=== PATIENT | female | born 1995 | race Caucasian/White ===

== ENCOUNTER 2022-09-30 15:12 | Outpatient (CLI) | payer MEDICAID, SELFPAY | END 2022-09-30 15:13 | disposition home or self-care (01) | LOC: NFLDREF 15:12 | PROVIDERS: PCP Family Medicine; Visit Provider Advanced Practice Midwife | DX: Z34.92 Encounter for supervision of normal pregnancy, unspecified, second trimester (principal); Z3A.16 16 weeks gestation of pregnancy | CPT/HCPCS: 80306 ==

== ENCOUNTER 2022-10-28 09:34 | Outpatient (CLI) | payer MEDICAID, SELFPAY ==
--- NOTE | 2022-10-28 09:45 | CRLHL7_ITS ---
For Patients: As a result of the Century Cures Act, medical imaging exams and procedure reports are released immediately into your electronic medical record. You may view this report before your referring provider. If you have questions, please contact your health care provider. INDICATION: Evaluate anatomy. COMPARISON: none TECHNIQUE: Real time [place] scale imaging of the fetus was performed as well as color Doppler analysis of the umbilical vessels. FINDINGS: Sonographic imaging demonstrates a single living intrauterine gestation. Fetus demonstrates a regular cardiac rate of 150 beats per minute. Fetus has a variable position. The placenta lies anteriorly without evidence of placenta previa. The edge of the placenta is located 7.3 cm from the internal cervical os. Amniotic fluid volume appears normal. Single deepest vertical pocket: 4.8 cm. The cervix is closed and measures 4.5 cm in length. The composite ultrasound gestational age is calculated at 21 weeks 0 days with an estimated sonographic due date of 03/10/2023. The estimated weight is 406 grams which lies at the 90th %. The following biometric measurements were obtained: Biparietal diameter: 4.9 cm/21 weeks 0 days 77th% Head circumference: 18.4 cm/20 weeks 5 days 63rd% Abdominal circumference: 16.5 cm/21 weeks 4 days 83rd% Femur length: 3.5 cm/20 weeks 6 days 63rd% The HC/AC ratio measures: 1.11 range (1.06-1.25) On anatomic survey, there is a normal appearance of the cerebral ventricles, cavum septi pellucidi, cisterna magna and cerebellum. The nose, lips, and facial profile appear normal. The cervical, thoracic and lumbar spine are well visualized and appear normal. There is a normal four-chamber heart view and the left and right ventricular outflow tracts appear normal. The diaphragm and stomach appear normal. The kidneys and bladder also appear normal. There is a normal three-vessel cord there is a marginal cord insertion site located 1.6 cm from the superior placental as. The four extremities appear normal. IMPRESSION: Concordance of clinical and sonographic dating. Normal anatomic survey. Marginal placental cord insertion. Dictated by Johnie Ludwig MD @ 10/29/2022 9:47:21 AM (Electronically Signed)
== END 2022-10-28 09:35 | disposition home or self-care (01) ==
LOC: US 09:35
PROVIDERS: PCP Family Medicine; Visit Provider Advanced Practice Midwife
DX: Z34.92 Encounter for supervision of normal pregnancy, unspecified, second trimester (principal); Z3A.20 20 weeks gestation of pregnancy
CPT/HCPCS: 76805

== ENCOUNTER 2022-12-21 14:00 | Outpatient (REF) | payer MEDICAID, SELFPAY | END 2022-12-21 14:01 | disposition home or self-care (01) | LOC: NFLDREF 14:00 | PROVIDERS: PCP Family Medicine; Referring Provider Family Medicine; Visit Provider Advanced Practice Midwife | DX: Z34.90 Encounter for supervision of normal pregnancy, unspecified, unspecified trimester (principal) | CPT/HCPCS: 86592 ==

== ENCOUNTER 2023-01-04 13:26 | Outpatient (CLI) | payer MEDICAID, SELFPAY | END 2023-01-04 13:27 | disposition home or self-care (01) | LOC: NFLDREF 01-07 17:05 | PROVIDERS: PCP Family Medicine; Referring Provider Family Medicine; Visit Provider Advanced Practice Midwife | DX: Z34.93 Encounter for supervision of normal pregnancy, unspecified, third trimester (principal); F12.20 Cannabis dependence, uncomplicated; Z3A.30 30 weeks gestation of pregnancy | CPT/HCPCS: 80306 ==

== ENCOUNTER 2023-01-18 10:56 | Outpatient (CLI) | payer MEDICAID, SELFPAY ==
--- NOTE | 2023-01-18 11:00 | CRLHL7_ITS ---
For Patients: As a result of the Century Cures Act, medical imaging exams and procedure reports are released immediately into your electronic medical record. You may view this report before your referring provider. If you have questions, please contact your health care provider. INDICATION: f/u marginal cord insert COMPARISON: 10/28/2022 TECHNIQUE: Real time [place] scale imaging of the fetus was performed as well. FINDINGS: Sonographic imaging demonstrates a single living intrauterine gestation. Fetus demonstrates a regular cardiac rate of 128 beats per minute. Fetus has a vertex position. The placenta lies anteriorly. Amniotic fluid volume appears normal and there is a single deepest vertical pocket: 4.2 cm. The cord insertion into the placenta is located 3.6 cm from the placental edge. IMPRESSION: Placental cord insertion is now located 3.6 cm from the placental edge. Dictated by Johnie Ludwig MD @ 01/19/2023 9:48:54 AM (Electronically Signed)
== END 2023-01-18 10:57 | disposition home or self-care (01) ==
LOC: US 10:56
PROVIDERS: PCP Family Medicine; Visit Provider Advanced Practice Midwife
DX: Z34.93 Encounter for supervision of normal pregnancy, unspecified, third trimester (principal); O34.219 Maternal care for unspecified type scar from previous cesarean delivery; Z3A.32 32 weeks gestation of pregnancy
CPT/HCPCS: 76816

== ENCOUNTER 2023-01-19 16:31 | Outpatient (CLI) | payer MEDICAID, SELFPAY ==
--- NOTE | 2023-01-19 17:00 | CRLHL7_ITS ---
For Patients: As a result of the Century Cures Act, medical imaging exams and procedure reports are released immediately into your electronic medical record. You may view this report before your referring provider. If you have questions, please contact your health care provider. INDICATION: Third trimester scan, evaluate growth. COMPARISON: 01/18/2023 TECHNIQUE: Real time [place] scale imaging of the fetus was performed. FINDINGS: Sonographic imaging demonstrates a single living intrauterine gestation. Fetus demonstrates a regular cardiac rate of 137 beats per minute. Fetus has a vertex position. The placenta lies left sided. Amniotic fluid volume appears normal and there is a single deepest vertical pocket: 4.9 cm. The estimated weight is 1902gm which lies at the 38th %. On the prior OB ultrasound exam dated 10/28/2022 the estimated weight was at the 90th%. BPD 78th percentile. HC 70th percentile. AC 36th percentile. FL 25th percentile. The HC/AC ratio measures 1.11 range (0.96-1.11). IMPRESSION: Sonographic gestational age 32 weeks 6 days and sonographic due date 03/10/2023. Good correlation with dates. Normal interval growth. Estimated weight 38th percentile. Abdominal circumference 36th percentile. Dictated by Johnie Ludwig MD @ 01/20/2023 8:17:43 AM (Electronically Signed)
== END 2023-01-19 16:32 | disposition home or self-care (01) ==
LOC: US 16:32
PROVIDERS: PCP Family Medicine; Visit Provider Advanced Practice Midwife
DX: Z34.93 Encounter for supervision of normal pregnancy, unspecified, third trimester (principal); Z3A.32 32 weeks gestation of pregnancy
CPT/HCPCS: 76816

== ENCOUNTER 2023-02-01 13:37 | Outpatient (CLI) | payer MEDICAID, SELFPAY | END 2023-02-01 13:38 | disposition home or self-care (01) | LOC: NFLDREF 13:38 | PROVIDERS: PCP Family Medicine; Visit Provider Advanced Practice Midwife | DX: Z34.93 Encounter for supervision of normal pregnancy, unspecified, third trimester (principal) | CPT/HCPCS: 82728; 83021 ==

== ENCOUNTER 2023-02-15 15:34 | Outpatient (CLI) | payer MEDICAID, SELFPAY ==
[2023-02-18 09:02] LABS: Strep B DNA Probe Negative (Negative); Strep B Susceptibility Needed? No
== END 2023-02-15 15:35 | disposition home or self-care (01) ==
LOC: NFLDREF 15:34
PROVIDERS: PCP Family Medicine; Visit Provider Advanced Practice Midwife
DX: Z34.93 Encounter for supervision of normal pregnancy, unspecified, third trimester (principal); Z3A.36 36 weeks gestation of pregnancy
CPT/HCPCS: 76816; 76819; 87081; 87653

== ENCOUNTER 2023-02-22 13:40 | Outpatient (CLI) | payer MEDICAID, SELFPAY ==
--- NOTE | 2023-03-09 00:53 | PC.NURSE ---
Center telephone call greater than 37 weeks Date of call: [03/09/23] Time of call: [0049] Name of person calling: [Dulce Cervantes] Best phone # to reach you at: [[phone]] patient: G: [4] P: [2] EDC: [03/15/23] Gestational age: [39.1] weeks Provider: [Roz Stein] Reason for calling (patient's words): [I think my water just broke. It's either that or I peed in my bed. There is little white flecks in it.] Instructed patient to come to the center for further evaluation. If patient is calling with the following complaints, instructed to come to Center for evaluation: Feels like water broke: [yes] Regular contractions that are 5 min apart: [no] Bleeding that is bright red and similar to a menstrual period: [no] Decreased movement: [no] Temp >100.4: [no] Patient has a sense that something doesn't feel right: [no] Is patient having contractions: [no] Reviewed Signs of Labor: Uterine tightening or cramping that occurs at regular intervals. These typically occur at shorter and shorter intervals and may increase in intensity with time. Unlike [place] contractions, changes in activity should not make these symptoms go away. With true labor, the time between contractions will gradually shorten and the intensity gradually increases. Typical recommendation is coming to the hospital when contractions occur every 5 minutes or less and last for 60 seconds or more for 1 hour. If patient chooses to stay home, patient given comfort instructions and informed if symptoms stay the same or are worse after 1 hour come to Center. Comfort measures: Lie on left side, reset, drink bottle or large cup of water, monitor contractions for 1 hour. Patient verbalized understanding?: [yes] Is patient coming for evaluation?: [yes] Telephone conversation guided by approved policy and flow chart, Telephone Calls From Patient's, approved at [facility] perinatology Committee November 2022.
== END 2023-02-22 13:41 | disposition home or self-care (01) ==
LOC: NFLDREF 13:40
PROVIDERS: PCP Family Medicine; Visit Provider Advanced Practice Midwife
DX: O99.323 Drug use complicating pregnancy, third trimester (principal); F12.20 Cannabis dependence, uncomplicated; Z3A.37 37 weeks gestation of pregnancy
CPT/HCPCS: 80306

== ENCOUNTER 2023-03-09 03:33 | Inpatient (IN) | payer MEDICAID, SELFPAY ==
[2023-03-09] VITALS (31 sets, daily range): BP systolic 114–149; BP diastolic 64–102; PULSE 32–81; RESP 16–18; TEMP 36.3–36.8; O2SAT 95–100; BMI 37.5
[2023-03-09 03:16] LABS: Amnisure Rom* POSITIVE
[2023-03-09 03:20] LABS: Amphetamine Screen Urine Negative (Negative); Barbiturate Screen Urine Negative (Negative); Benzodiazepines Screen Urine Negative (Negative); Cannabinoid Screen Urine POSITIVE (Negative); Cocaine Screen Urine Negative (Negative); Methadone Screen Urine Negative (Negative); Methamphetamines Screen Urine Negative (Negative); Opiate Screen Urine Negative (Negative); Oxycodone Screen Urine Negative (Negative); Phencyclidine Screen Urine Negative (Negative); Tricyclic Antidepressant Urine Negative (Negative)
--- NOTE | 2023-03-09 04:07 | W.PM.LDBA ---
Subjective History of Present Illness Date Seen: 03/09/23 Narrative: Patient is being admitted to Labor and Delivery for SROM with clear fluid. She is a 27 year old at 39.1 weeks gestation. Her full history and physical was dictated by Fox Jean-Baptiste CNM on 02/22/23. Please see this for details. She ruptured at 0030. She has not felt contractions since rupture and denies feeling the contractions that were tracing on the toco at time of admit. we discussed expectant management vs Pitocin titration. Risks and benefits of each were discussed. She would like to proceed with Pitocin. She is up ambulating in her room. Specific Issues/Plans Transfer at 16 2/7 from [facility] H&P done by CHAY Morejon CNM on 02/22/2023 1. History of delivery Previous c/s 12/27/2021, records received Indication: bradycardia w/ elective IOL TOLAC consent signed. If not delivered spontaneously by 40 weeks will plan on C/S. Consult OB next visit. 36 wk growth us recommended: 70%, BPP 10/19 2. Closely Spaced Pregnancies Her youngest is 9 m at transfer visit Discussed with the whole OB team and they are all in agreement that they are comfortable with a TOLAC despite closely spaced . 3. History of multiple illicit drugs Reported she has used everything UDS ordered at transfer visit: + for THC 4. Current THC Use, plans to try to stop for UDS 09/30: + THC 10/29, admits to still using, but has decreased UDS 28 weeks: 01/04, admits to still using +THC in UDS UDS 37 weeks: positive THC 5. Marginal cord insertion. RESOLVED Growth u/s Q 4 weeks starting at 28-32 weeks: 38% EFW at 32 weeks 01/18: Placental cord insertion is now located 3.6 cm from the placental edge. Consider weekly BPP or NST starting 36 weeks Flu: declines Tdap: 01/04/2023 RSV: 01/18/2023 PHQ-9/SARAH-7: 01/18/2023 COVID: Declines OB Labs 08/12/2022: Blood type: B+, antibody screen negative. Hgb: 13.1 Platelets: 272 Rubella: Immune RPR: non-reactive HBsAg: negative Hep C: non-reactive HIV: negative GC/Chlamydia: not collected Urine: no growth Genetic screening: declined 1st US: 08/13/2022: Impression: Unremarkable, KANG by 1st trimester US 03/15/2023 pap due OB - Problem Based A/P Additional Plan (1) PROM (premature rupture of membranes): Status: Acute (2) Uterine scar from previous delivery affecting : Status: Acute (3) Short interval between pregnancies affecting in third trimester, antepartum: Status: Acute (4) Marijuana use during : Status: Acute Plan ASSESSMENT:? at 39.1 weeks gestation? GBS negative? complicated by previous scar and short interpregnancy interval.? Spontaneous prelabor rupture of membranes ? ?? PLAN:? 1. Reviewed risks and benefits of augmentation with Pitocin vs expectant management. Pt prefers augmentation with Pitocin titration.? 2. Candidate for analgesia of choice. Planning unmedicated .? 3. Anticipate NVD? 4. Place IV per policy for TOLAC 5. Continuous monitoring for TOLAC. 6. UDS for history of THC use. Delivery/Labor/Induction Plan Induction method: per pitocin protocol OB Result Labs Blood Type: B (+) positive Rubella: immune RPR/VDLR: nonreactive GBS Status: negative HBsAG: negative OB Exam Physical Exam Vital signs: Pulse BP 81 114/72 03/09/23 02:23 03/09/23 02:23 Narrative: Psychiatric:? Alert and oriented x3? HEENT:? Normocephalic, atraumatic? Neck:? Supple without adenopathy or thyromegaly? Lungs:? Clear to auscultation bilaterally? Heart:? Regular rate and rhythm, no murmur, rub or gallop? Abdomen:? Soft, nontender, and gravid? Extremities:? No edema or erythema? Detailed Labor and Delivery Exam Patient Gravid: Yes Dilation (cm): 3 (per RN exam) Effacement (%): 30 Contraction Frequency: 6-8 Tachysystole: No Contraction intensity: Mild Fetus (Single) Station: -3 Amniotic Membrane Status: SROM Amniotic Membrane Fluid Description: Clear Heart Rate Baseline: 130 Monitor Accelerations: Present Monitor Decelerations: None Halfway Variability: Moderate (6-25)
[2023-03-09 04:30] LABS: Basophils Percent Auto 0.3 % (0.0-3.0); Hematocrit 33.7 % (33.0-51.0); Hemoglobin* 11.1 gm/dL (12.0-16.0); Immature Granulocytes Pct Auto 0.4 %; Lymphocytes Percent Auto 17.2 % (20-44); Mean Corpuscular HGB Conc 33 gm/dL (32-36); Mean Corpuscular Hemoglobin 29 pg (26-34); Mean Corpuscular Volume 89 fL (80-100); Monocytes Percent Auto 8.1 % (0.0-11.0); Platelet Count* 290 K/uL (140-440); RDW Coefficient of Variation % 13.4 % (11.5-15.5); Red Blood Count 3.81 m/uL (4.00-5.20); White Blood Count* 15.17 K/uL (4.50-11.00)
[2023-03-09 04:39] LABS: Slide Review Reflex No
[2023-03-09] MEDS: LACTATED RINGERS 1000 ML 1,000 ML 125 ML IV ×2 (04:45→13:36)
[2023-03-09] MEDS: OXYTOCIN 30 unit/500 ML in NS 30 UNIT/500 ML BAG IVPB (05:28)
--- NOTE | 2023-03-09 07:52 | PM.OBPNL ---
Subjective Time Seen by Provider: 07:45 Date Seen: 03/09/23 Narrative: Ms. Cervantes is a 27yo undergoing IOL in the setting of PROM. She is a CNM patient, s/p TOLAC consult with Dr. Rodriguez on 11/24/22. On review of EMR this morning, her signed TOLAC consent could not be identified. SAAD ProM requested repeat consenting. I visited with Alejandra, who affirmed her strong desire of TOLAC. We discussed her likelihood of success being 79.9% by MFMU calculator. We discussed the risks of trial of labor after section (TOLAC). There is a 0.5-0.9% chance of uterine rupture with one prior low transverse section and 0.9-1.3% if there are 2 prior low transverse sections. Uterine rupture risk can be up to 3% with induction of labor with used of prostaglandins. Due to this risk, we will not be using prostaglandins for induction of labor. She is ongoing induction via pitocin at this time. Of note, I explained there is an increased risk of uterine rupture with close interval pregnancies, particularly when the delivery to conception interval is less than 6 months. Alejandra's last baby was born on 12/27/21, and with her KANG of 03/15/23 her probable date of conception was 06/21/22. As such, I did explicitly explain that she is at an increased risk of uterine rupture. I discussed that in the event of uterine rupture, there could be catastrophic outcome including maternal hysterectomy, transfusion, infection, intensive care unit admission, maternal , , and mental handicap. There is up to a 25% risk of or neurological damage if rupture does occur. She is in agreement with blood transfusion if medically necessary. I also explained the resources and staffing available at our institution. We also discussed that an elective repeat section has risks as well. These include bleeding, infection, damage to the uterus (possibly requiring a hysterectomy), and damage to bladder and bowel. Additionally, babies born by section have a slightly increased risk of needing oxygen temporarily compared to babies born vaginally. Overall, the probability of successful based on her personal history is 79.9% based on MFMU calculator. The factors that increase the probability of success include a prior vaginal and spontaneous labor. Factors that decrease the probability of success are history of section for labor dystocia, increased maternal age, gestational age greater than 40 weeks, maternal obesity, preeclampsia, and increased size. Although there is no universally agreed upon discriminatory point, evidence suggests that women with at least 60-70% likelihood of achieving during attempted TOLAC experiences same or less maternal morbidity as women who undergo elective repeat delivery. All questions answered. After this discussion, she acknowledged the risks and benefits and strongly desires to continue TOLAC. TOLAC consent form completed by Alejandra and myself. Objective Vital Signs: Last Vital Signs Temp 98.0 F 03/09/23 06:45 Pulse 63 03/09/23 07:13 Resp 16 03/09/23 06:45 BP 133/64 03/09/23 07:13 Contractions Contraction intensity: Mild Assessment Station: -3 Heart Rate Baseline: 130 Monitor Accelerations: Present Monitor Decelerations: None
[2023-03-09] MEDS: LACTATED RINGERS 1000 ML 1,000 ML 999 ML IV (11:06)
--- NOTE | 2023-03-09 11:24 | PM.OBPNL ---
Subjective Time Seen by Provider: 11:25 Date Seen: 03/09/23 Narrative: Called to L & D for decels in FHTs. Possible decels previously noted, but unable to determine if they were r/t Novii monitor or actual decels. Monitors switched to EFM/[place], and decels noted with ctx. Did try a few position changes prior to calling. Pt also feeling increased pressure. Assisted from tub for further evaluation. SVE at that time noted to be 5-6. Continued with external monitoring, but both contractions and FHR difficult to trace. Audible decels noted. Decision made to switch to internal monitors, placed w/o difficulty. Pitocin initially decreased, but discontinued once internals were placed. Dr. Baer aware of pt status, including SVE, internal monitors and early decelerations to 80-90s with contractions. Good return to baseline between contractions. Pt did have one elevated BP, 141/79, but taken after pt had been up and was олег. Awaiting repeat, will get preeclampsia labs if it remains elevated. Alejandra is coping well with labor pain/contractions. Her partner is with her for support. She would like to continue with non pharmacologic methods for comfort and pain management.?She is doing some small pushing w/ ctx, encouraged to breathe through as able. ? Objective Exam: VSS, afebrile General Appearance:? Calm, cooperative. No acute distress. ? Psychiatric Exam: Alert and oriented, appropriate affect Abdomen: Gravid Ctx: ?Q 2-3 min apart. ? Moderate - Strong FHTs: Baseline: 115. Variability: moderate. Accels: none. Decels: early decels w/ ctx. SVE: 6/90/0 Membranes: SROM X 11 hours ? Vital Signs: Last Vital Signs Temp 97.9 F 03/09/23 10:17 Pulse 56 L 03/09/23 10:17 Resp 16 03/09/23 10:17 BP 141/79 H 03/09/23 10:17 Pulse Ox 99 03/09/23 11:20 Assessment Heart Rate Baseline: 130 Plan Plan: Assessment:?? at 39.1 gestation?? GBS neg Patient is coping well with challenges of labor.?? Labor type: Ay[place]ed, active labor? complicated by: -Hx of -1 prior NVD -closely spaced , approved for TOLAC -Marijuana use in . Labor complicated by: -TOLAC -Early decels w/ ctx ? Plan:?? Continue to monitor contractions and decelerations. Pitocin off at this time, will reevaluate if contractions space out. Continue to monitor for labor progress. Continue with routine intrapartum cares as ordered.?? Patient encouraged to move and change positions to promote physiologic labor and and to help improve heart rate decelerations as needed.?? Nonpharmacologic comfort measures per patient preference. Candidate for analgesia of choice if desired. Anticipate progress to NVD.
[2023-03-09] MEDS: CEFAZOLIN 2 GM INJ IVP (12:18)
[2023-03-09] MEDS: AZITHROMYCIN 500 MG in 0.9 % SODIUM CHLORIDE 250 ml 250 ML 255 MG IVPB (12:26)
--- NOTE | 2023-03-09 12:49 | PM.OBPNL ---
Subjective Time Seen by Provider: 12:20 Date Seen: 03/09/23 Narrative: CNM at bedside to assess decelerations, labor progress and see how Alejandra is coping. Requesting nitrous oxide. Changed positions: hands and knees, both sides, standing, sitting. Continues to breath through ctx. Decelerations worse in certain positions. SVE done as she was feeling more pressure, 7/90/0. CNM continued at bedside. Decelerations noted to be taking longer to recover from, clifford lower, and not returning to baseline 115. Dr. Goodwin called to bedside for further assessment. Decision made to proceed with joce castillo. Pt and partner aware of plan. Objective Exam: VSS, afebrile General Appearance:? Calm, cooperative. No acute distress. ? Psychiatric Exam: Alert and oriented, appropriate affect Abdomen: Gravid Ctx: ?Q 2-3 min apart. ? Moderate - Strong FHTs: Baseline: 115. Variability: moderate. Accels: none. Decels: variable/late. SVE: 7/90/0 Membranes: SROM X 12 hours ? Vital Signs: Last Vital Signs Temp 97.7 F 03/09/23 11:39 Pulse 60 03/09/23 11:40 Resp 16 03/09/23 11:39 BP 146/65 H 03/09/23 11:40 Pulse Ox 99 03/09/23 11:20 Plan Plan: Assessment:?? at 39.1 gestation?? GBS neg Patient is coping well with challenges of labor.?? Labor type: Augmented, active labor? complicated by: -Hx of -1 prior NVD -closely spaced , approved for TOLAC -Marijuana use in . Labor complicated by: -TOLAC -Worsening decelerations and bradycardia, remote from delivery Plan: Dr. Goodwin at bedside to assess situation. Decision made to proceed with a code white emergency . Pt and partner agree with plan.
--- NOTE | 2023-03-09 12:54 | CRLHL7_ITS ---
For Patients: As a result of the Cures Act, medical imaging exams and procedure reports are released immediately into your electronic medical record. You may view this report before your referring provider. If you have questions, please contact your health care provider. Indication: Post code Technique: Abdomen 1 view. Comparison: None. Findings: No dilated bowel loops. No retained foreign body. Impression: No retained foreign body. Dictated by Johnie Ludwig MD @ 03/10/2023 9:06:06 AM (Electronically Signed)
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
--- NOTE | 2023-03-09 13:34 | P.ANES_ITS ---
Anesthesia Charges Start Date/Time Anesthesia Start Date: 03/09/23 Anesthesia Start Time: 12:15 Stop Date/Time Anesthesia Stop Date: 03/09/23 Anesthesia Stop Time: 13:29 Summary Emergency: INFORMATICS ANALYST
--- NOTE | 2023-03-09 13:47 | P.OBPRC_ITS ---
OB Delivery Proc Additional Procedures Tubal Ligation at the time of : No Procedure Time Seen by Provider: 12:20 Date of procedure: 03/09/23 Pre-op diagnosis: Non-reassuring heart tones Trial of Labor After Post-op diagnosis: same Procedure Done: Global Will [facility] bill your pro fee for this procedure?: Yes Blood Loss Measurement Type: QBL (149) Bakri Used: No IV fluids (mL): 1,000 Urine Output (mL): 200 Surgeon: Cornelius Baer MD Substance Abuse Rn: Mandy Jimenez MD Anesthesia Type: General Findings: Moderate scarring of the rectus fascia and rectus abdominal muscles in the setting of prior delivery. Bladder flap advanced on the lower uterine segment. Unremarkable uterus, fallopian tubes and ovaries. Thin adhesions noted between the bilateral fallopian tubes and ovaries. Procedure Name: Repeat delivery Procedure Description: PROCEDURE IN DETAIL: Patient was taken to the operating room with IV running in the setting of a code white for prolonged heart rate deceleration. She arrived to the operating room at 12:16 pm where heart rate was initially noted to be 90-100bpm with moderate variability. She was transferred to the OR table and Solano catheter was inserted. heart was noted to decelerate to 70 beats per minute at 1218, decision was made to proceed with induction of general anesthesia in the setting of emergency delivery. She received cefazolin and azithromycin in preoperative prophylaxis. She was prepped with a Betadine splash and draped in the usual sterile fashion. Upon induction of anesthesia insertion of endotracheal tube, we immediately proceeded to incision. A low-transverse skin incision was made with a scalpel and carried through to the underlying layer of fascia with the scalpel. The subcutaneous fat was dissected off the underlying fascia with blunt dissection. The fascia was nicked in the midline with a scalpel, and this incision was extended laterally with scissors. There was noted to be thickened rectus fascia and adhesions underlying rectus muscle in the setting of prior surgery. Prakash clamps were utilized to elevate the fascia and drop down the rectus abdominal muscle superiorly and inferiorly. The rectus muscles were in the midline. Peritoneum was identified and entered bluntly. Peritoneal opening was extended laterally with blunt dissection. Adhesion was noted between the bladder and lower uterine segment, where a bladder flap was quickly developed with Citizen Of [place] and Audie scissors. Gentle blunt dissection dropped the bladder reflection to well below the planned hysterotomy. Bladder blade inserted. Low- transverse uterine incision was made with a scalpel. Incision was widened bluntly. The infant's head was grasped through the hysterotomy and delivered with the help of fundal pressure. The remainder of the body delivered without incident. No nuchal cord was present. Immediate respiratory effort, crying and tone were noted in the . Cord was clamped and cut after 30 seconds. was handed off to attending nurses. A segment was obtained for cord gas analysis in the setting of non- reassuring status prior to delivery, and handed off to obtain gas specimen. The placenta was delivered with gentle traction on the cord. No apparent placental abruption was identified. The uterus was cleaned of all clots and debris with the dry lap pad. Hysterotomy was inspected, with no extensions noted. The hysterotomy was reapproximated with 0 Vicryl in a running, locked fashion. Uterine atony was noted as we proceeded with the primary closure, where bimanual massage, TXA and Hemabate were utilized. Methergine was avoided given her evolving in hypertensive disease. Second layer of the same suture was used in imbricating fashion to obtain hemostasis. Excellent tone was noted at completion of hysterotomy closure. The uterus was examined fully, with no evidence of uterine rupture. The adnexa were examined and noted to be normal in appearance, aside from thin adhesive disease between the bilateral tubes and ovaries. The cul-de-sac and gutters were cleansed with dampened laparotomy sponge, removing any further clots and debris. The hysterotomy was reexamined and found to be hemostatic. The bladder flap was inspected and noted to be hemostatic. The rectus fascia was elevated with 2 Prakash clamps, rectus muscles were examined and found to be hemostatic. The fascia was reapproximated with 0 Vicryl in a running fashion. Subcutaneous fat was irrigated and Bovie used on oozing vessels. The subcutaneous fat was reapproximated with 2-0 Vicryl in a running fashion. The skin was closed with a subcuticular stitch of 3-0 Monocryl. Surgical glue was applied above this. Patient tolerated procedure well was taken to recovery area in stable condition. Surgical debriefing was completed as described below. Specimens including cord gas and placenta sent for evaluation. I completed a debrief Alejandra's , Clyde, to explain the indication for emergency delivery and my intraoperative findings. All questions answered. Plan to return to the bedside after patient is awake, to debrief with Alejandra as well. Complications: None. Pathology: specimen obtained, sent to pathology Surgery Debrief Performed: Yes Surgery Debrief Comment: Debrief completed with patient name, procedure, specimens, QBL, IV fluids and urine output. No staff concerns identified. Condition: stable Disposition: floor
--- NOTE | 2023-03-09 13:53 | W.PM.NB ---
Nerve Block Nerve Block Time Seen by Provider: 13:16 Date Seen: 03/09/23 Type of block requested by surgeon for post-operative analgesia: TAP Side: bilateral Time out performed: Yes Verification of patient name: Yes Verification of date of : Yes Site marking: site marked Name of person performing procedure: Mikel Continuous monitoring Was continuous monitoring of O2 sat, B/P, awake overnight monitor, recorded every 15 minutes?: Yes Procedure Checklist: sterile prep, needles and gloves Ultrasound guided. Images saved: Yes Medications given in 5ml increments after negative aspiration: Marcaine %: 0.25 mL: 30 Needle gauge: 20 and Exparel mL: 10 Patient tolerated procedure well: Yes Additional comments: Needle noted between internal oblique and transversus abdominus. Local spread visualized Block Charges Block Charge (with Pro Fee): TAP Bilateral Use of Ultrasound Machine for Block: Yes- US Guidance/pain block
--- NOTE | 2023-03-09 13:54 | W.ANESCHARGE ---
Anesthesia Charges Start Date/Time Anesthesia Start Date: 03/09/23 Anesthesia Start Time: 12:15 Stop Date/Time Anesthesia Stop Date: 03/09/23 Anesthesia Stop Time: 13:29 Summary Emergency: MDA
[2023-03-09 15:01] LABS: Hematocrit 33.6 % (33.0-51.0); Hemoglobin* 11.1 gm/dL (12.0-16.0); Mean Corpuscular HGB Conc 33 gm/dL (32-36); Mean Corpuscular Hemoglobin 29 pg (26-34); Mean Corpuscular Volume 89 fL (80-100); Platelet Count* 297 K/uL (140-440); Red Blood Count 3.78 m/uL (4.00-5.20)
[2023-03-09 15:11] LABS: Aspartate Amino Transferase* 20 U/L (12-35); Creatinine* 0.5 mg/dL (0.5-1.5); Est. Creatinine Clearance* 138.57; Estimated Glomerular Filt Rate 131 ml/min
[2023-03-09 15:12] LABS: Alanine Aminotransferase* 17 U/L (4-35); Blood Urea Nitrogen* 9 mg/dL (5-24)
[2023-03-09] MEDS: KETOROLAC 30 MG/ML inj IVP ×2 (15:15→21:24)
[2023-03-09 15:38] LABS: Total Protein Urine 28 mg/dL
[2023-03-09 15:39] LABS: Creatinine Urine 52.3 mg/dL
[2023-03-09 15:42] LABS: Slide Review Reflex Yes; White Blood Count* 30.78 K/uL (4.50-11.00)
[2023-03-09 16:14] LABS: Slide Review Acceptable Review (Acceptable)
--- NOTE | 2023-03-09 16:32 | PC.CPCO ---
Received social work referral due to pt testing positive for THC upon being admitted to hospital. Completed written and verbal CPS reports to [facility] CPS intake. Attached pt's drug screening results to report. Verbal report was made to Emily Wong at [phone]. Written report was faxed to [phone]. Social work will follow up as needed.
[2023-03-09] MEDS: ACETAMINOPHEN 500 MG TABLET 1000 MG PO (20:16)
[2023-03-10 00:09] VITALS: BP 119/73; PULSE 66; RESP 16; TEMP 36.8; O2SAT 95
[2023-03-10 03:28] VITALS: BP 113/63; PULSE 61; RESP 16; TEMP 36.8; O2SAT 94
[2023-03-10] MEDS: KETOROLAC 30 MG/ML inj IVP ×3 (03:32→15:26)
[2023-03-10 05:29] LABS: Basophils Percent Auto 0.1 % (0.0-3.0); Eosinophils Percent Auto 0.6 % (0.0-7.0); Hematocrit 25.7 % (33.0-51.0); Hemoglobin* 8.6 gm/dL (12.0-16.0); Immature Granulocytes Pct Auto 0.4 %; Lymphocytes Percent Auto 13.6 % (20-44); Mean Corpuscular HGB Conc 34 gm/dL (32-36); Mean Corpuscular Hemoglobin 30 pg (26-34); Mean Corpuscular Volume 89 fL (80-100); Monocytes Percent Auto 7.7 % (0.0-11.0); Neutrophils Percent Auto 77.6 % (42.0-72.0); Platelet Count* 242 K/uL (140-440); RDW Coefficient of Variation % 13.5 % (11.5-15.5); Red Blood Count 2.89 m/uL (4.00-5.20); White Blood Count* 18.88 K/uL (4.50-11.00)
[2023-03-10 05:33] LABS: Slide Review Reflex No
--- NOTE | 2023-03-10 08:14 | PM.OBPNVD1 ---
OB - PN:Subj Subjective Date Seen: 03/10/23 Patient comments OB post-: pain well controlled, tolerating diet and flatus present infant status: Narrative: Dulce is a 27 y.o. G 4 P 3013 who was admitted to L & D for spontaneous onset of labor. ?She had a section that was uncomplicated. The patient feels well. ?The pain is well controlled with current medications. ?She has no new complaints. ?She is breast feeding and reports things are going well. the patient has done well.? Vitals have been stable.? She has remained afebrile.? Has a good appetite, is tolerating a general diet. ?She is voiding without difficulty.? She is passing gas and has not had a bowel movement.? She is ambulating and denies any dizziness.? Has small amount of rubra lochia. She has frequently asked the nurses if she can go outside. Problems: Anemia OB - PN: Obj Exam Physical Exam: Vital signs: Temp Pulse Resp BP Pulse Ox O2 Del Method 98.3 F 61 16 113/63 94 Room Air 03/10/23 03:28 03/10/23 03:28 03/10/23 03:28 03/10/23 03:28 03/10/23 03:28 03/10/23 03:28 Narrative: GENERAL APPEARANCE:? normal affect, alert, no distress MOOD:? appropriate CHEST:? clear to auscultation HEART:? regular rate and rhythm ABDOMEN:? soft, non-tender the uterine fundus is At Umbilicus, Midline and is appropriate for the stage of recovery. EXTREMITIES:? normal and no edema INCISION: Healing well, no surrounding erythema, abnormal induration or discharge Urinary Catheter Management: 3-way Urethral: Cath placed during this visit: yes, but has since been removed by the nurse Reason for continuing: surgical procedure Insertion date: 03/09/23 Insertion time: 12:16 Removal date: 03/09/23 Removal time: 16:45 OB - PN: Obj Data Labs Labs: Laboratory Results - last 24 hr 03/09/23 03/09/23 03/10/23 14:33 14:34 05:20 WBC 30.78 H* 18.88 H RBC 3.78 L 2.89 L Hgb 11.1 L 8.6 L Hct 33.6 25.7 L MCV 89 89 MCH 29 30 MCHC 33 34 RDW Coeff of Hussein 13.5 Plt Count 297 242 Neut % (Auto) 77.6 H Lymph % (Auto) 13.6 L [place] % (Auto) 7.7 Eos % (Auto) 0.6 Baso % (Auto) 0.1 Neut # (Auto) 14.70 H Lymph # (Auto) 2.60 [place] # (Auto) 1.50 H Eos # (Auto) 0.10 Baso # (Auto) 0.00 Abs Immat Gran (auto) 0.10 Imm/Tot Granulo (auto) 0.4 Diff Slide Review Acceptable Review BUN 9 Creatinine 0.5 Estimated Creat Clear 138.57 Estimated GFR 131 AST 20 ALT 17 Urine Creatinine 52.3 Protein/Creatinin Ratio 0.50 H Urine Total Protein 28 OB - PN: A/P Delivery Assessment and Plan (1) care and examination immediately after delivery: Status: Acute (2) Marijuana use during : Status: Inactive (3) Lactating mother: Status: Acute (4) Status post delivery: Status: Acute (5) Preeclampsia: Status: Acute Plan day: 1 Plan: routine care Comments: Routine post-operative care May see if desired Anemia. Iron supplement started. Anticipate discharge tomorrow.
[2023-03-10 08:27] VITALS: BP 128/80; PULSE 61; RESP 16; O2SAT 98
[2023-03-10] MEDS: FERROUS SULFATE 325 MG TABLET PO (09:16)
[2023-03-10 15:23] VITALS: BP 121/78; PULSE 53; RESP 16; O2SAT 98
--- NOTE | 2023-03-10 20:04 | PC.NURSE ---
Patient left unit from 1940 - 2004. Patient has been educated on liability to the hospital if something happens to her if she leaves the unit. Patient demonstrated understanding of education.
[2023-03-10 20:10] VITALS: BP 130/79; PULSE 105; RESP 15; TEMP 36.8; O2SAT 97
[2023-03-10] MEDS: IBUPROFEN 600 MG TABLET PO (21:01)
[2023-03-10 23:47] VITALS: BP 117/76; PULSE 60; RESP 16; TEMP 37; O2SAT 99
[2023-03-11 04:33] VITALS: BP 114/73; PULSE 68; RESP 16; TEMP 37; O2SAT 99
[2023-03-11] MEDS: ACETAMINOPHEN 500 MG TABLET 1000 MG PO (05:26)
[2023-03-11 08:28] VITALS: BP 119/73; PULSE 70; RESP 18; TEMP 36.6; O2SAT 98
--- NOTE | 2023-03-11 08:33 | P.DS_ITS ---
DS: Providers Provider Date Seen: 03/11/23 Date of admission: 03/09/23 03:33 Primary care physician: Chris Gee MD Admitting Clinician: Roz Stein CNM Consults: 03/09/23 03:04 Consult to Child Attendant [CONS] Routine Comment: Reason for Consult:: Substance Abuse Screening 03/09/23 13:29 Consult to Physician [CONS] Routine Comment: Consulting Provider: Vashti Baer Has provider been notified: Yes Attending Physician on discharge: Noe Hahn CNM Date of Discharge: 03/11/23 DS: Diagnosis Discharge Diagnosis (1) care and examination immediately after delivery: Status: Acute (2) Lactating mother: Status: Acute (3) Marijuana use during : Status: Acute (4) Status post delivery: Status: Acute (5) Preeclampsia: Status: Acute Exam Narrative: Exam Narrative: GENERAL APPEARANCE:? normal affect, alert, no distress MOOD:? appropriate CHEST:? clear to auscultation HEART:? regular rate and rhythm ABDOMEN:? soft, non-tender the uterine fundus is 1 cm below Umbilicus, Midline and is appropriate for the stage of recovery. PERINEUM:? intact. EXTREMITIES:? normal and trace edema Incision: Healing well, no surrounding erythema, abnormal induration or discharge Const: Vital Signs, click to edit/add: Vital Signs - 24 hr 03/10/23 15:23 03/10/23 20:10 03/10/23 23:47 Temperature 98.2 F 98.6 F Pulse Rate [Right Pulse Oximeter] 53 L 105 H 60 Respiratory Rate 16 15 16 Blood Pressure [Ri ght Arm] 121/78 130/79 117/76 Pulse Oximetry 98 97 99 Oxygen Delivery Me thod Room Air Room Air Room Air 03/11/23 04:33 03/11/23 08:28 Temperature 98.6 F 97.9 F Pulse Rate [Right Pulse Oximeter] 68 70 Respiratory Rate 16 18 Blood Pressure [Ri ght Arm] 114/73 119/73 Pulse Oximetry 99 98 Oxygen Delivery Me thod Room Air Documenting provider has reviewed patient's vital signs: yes OB - DS: Summary Hospital Course Hospital Course: Alejandra is a 27 y.o. who was admitted to L & D for SROM. ?She had an emergent repeat after a trial of labor, for nonreassuring heart tones.?The patient feels well. ?The pain is well controlled with current medications. ?She has no new complaints. ?She is breast feeding and reports things are going well.? the patient has done well.? She has remained afebrile.? Has a good appetite, is tolerating a general diet. ?She is voiding without difficulty.? She is passing gas and has had a bowel movement.? She is ambulating and denies any dizziness.? Has Small amount of rubra lochia. ?She is planning the mini pill for prevention. During her labor she developed intermittent elevated blood pressures greater than 4 hours apaprt with an elevated protein ratio of 0.5 from a catheter specimen and otherwise normal labs which meets the criteria for preeclampsia without severe features. Since delivery blood pressures have been stable. Peripartum Data delivery method: Repeat Section Laceration description: None Procedures: Procedures Operation Date: 03/09/23 12:30 Actual Procedure Side Surgeon p Section Not Applicable Vashti Baer MD complications: none Gender: Female [place] A Gender: Female Infant Discharge Plan: Home Status at Discharge Functional status at discharge: independent ambulation Overall status at discharge: patient is progressing back to baseline Time Spent with Patient Time attestation: Total time spent providing and/or coordinating discharge services: Time spent: Less than 30 minutes Discharge Plan Discharge Disposition: Home, Self-Care Date of Admission: 03/09/23 03:33 Attending Provider on Discharge: Noe Hahn Consulting Providers: Vashti Baer Primary Care Provider: Chris Gee Condition: Stable Anticipated Discharge Date/Time: 03/11/23 12:00 Discharge Medications: New acetaminophen 500 mg Tablet 1,000 mg PO Q6H PRN (Reason: Pain) Qty: 0 0RF ferrous sulfate 325 mg (65 mg iron) Tablet 325 mg PO Q48H Qty: 30 1RF docusate sodium 100 mg Capsule 100 mg PO DAILY Qty: 90 2RF ibuprofen 600 mg Tablet 600 mg PO Q6H PRN (Reason: Pain) Qty: 60 0RF oxycodone 5 mg Tablet 5 - 10 mg PO Q4H PRN (Reason: Pain) Qty: 10 0RF Continued DHA 200 mg capsule 200 mg PO DAILY mv,iron,xph-MI-hmqbbzd cmb.24 400 mcg tablet 1 tab PO DAILY Rx Instructions: 60mg Discharge Orders: Discharge Order (Routine); Ordered 03/11/23 Ordered By: Noe Hahn Patient Education: OB Over the Counter Medication Information, OB /Bottle Feeding Additional Instructions: Discharge instructions were reviewed with the patient including signs and symptoms of infection and home going medications Lifting Restrictions: 20 pounds for 6 weeks No not submerge incision under water X 2 weeks? Nothing vaginally for 6 weeks: no tampons or intercourse Do not drive while taking narcotic pain medication(s) Off Work or School for 6 weeks [facility] for a BP check 03/15/22 Call with BP greater than or equal to 160/110 2-week visit: incision check, discuss infant feeding concerns, review control options and screen for anxiety/depression. 6-week visit for an annual exam. consultation services are available to all mothers and babies for the first year after delivery.? To make an appointment, please call [phone]. Activity Level: Activity as Tolerated Discharge Diet: Regular Follow Up Appointments: [facility] [Provider Group] Forms: ID Analyticsth Info Instructions
[2023-03-11] MEDS: IBUPROFEN 600 MG TABLET PO (08:47)
== END 2023-03-11 12:35 | disposition home or self-care (01) | DRG 787 ==
LOC: OB OUT 03-17 13:31
PROVIDERS: Advanced Practice Midwife; Obstetrics & Gynecology; Admitting Provider Advanced Practice Midwife; PCP Family Medicine; Visit Provider Advanced Practice Midwife
PROC: 10D00Z1 Extraction of Products of Conception, Low, Open Approach (ICD-10-PCS; CPT 59514; principal; 2023-03-09 12:15)
DX: O42.02 Full-term premature rupture of membranes, onset of labor within 24 hours of rupture (principal); O99.324 Drug use complicating childbirth; O14.04 Mild to moderate pre-eclampsia, complicating childbirth; O76 Abnormality in fetal heart rate and rhythm complicating labor and delivery; O34.211 Maternal care for low transverse scar from previous cesarean delivery; F12.90 Cannabis use, unspecified, uncomplicated; F19.11 Other psychoactive substance abuse, in remission; G89.18 Other acute postprocedural pain; O90.81 Anemia of the puerperium; D64.9 Anemia, unspecified; Z37.0 Single live birth; Z3A.39 39 weeks gestation of pregnancy
CPT/HCPCS: 01961; 36415; 64488; 74018; 76942; 80306; 82565; 82570; 84112; 84156; 84450; 84460; 84520; 85025; 85027; 86850; 86900; 86901; 88307; 99140; 99213; G0463; A9270; C9290; J0330; J0456; J0665; J0690; J1100; J1170; J1200; J1885; J2405; J2590; J2704; J3010; J7050; J7120

== ENCOUNTER 2024-11-02 11:26 | Outpatient (CLI) | payer BC, SELFPAY ==
--- NOTE | 2024-11-02 11:30 | CRLHL7_ITS ---
For Patients: As a result of the Century Cures Act, medical imaging exams and procedure reports are released immediately into your electronic medical record. You may view this report before your referring provider. If you have questions, please contact your health care provider. OB ULTRASOUND INDICATION: Dating. TECHNIQUE: Real time [place] scale imaging of the fetus was performed. Transabdominal imaging performed. LMP: 08/19/2024. KANG by LMP: 05/26/2025. GA: 10 w, 5 d. Previous US: No. CRL: 5.0 cm. 11 w 5 d. KANG: 05/19/2025. FHR: 165 BPM. Gestational sac: 5.2 cm. Appears within normal limits. Yolk sac: 4.9 mm. Appears within normal limits. Right ovary: N/V. Left ovary: Within normal limits. 2.6 x 1.5 x 3.1 cm. IMPRESSION: 1. Single living intrauterine measuring 11 weeks 5 days and sonographic due date 05/19/2025. 2. Small subchorionic hemorrhage measures 14 x 4 x 8 mm. Johnie Ludwig M.D. Diagnostic Radiologist [email or web address] KAREEN/Dictated by: Johnie Ludwig MD @ 11/02/2024 6:40:00 PM (Electronically Signed)
== END 2024-11-02 11:27 | disposition home or self-care (01) ==
PROVIDERS: PCP Family Medicine; Visit Provider Registered Nurse
DX: Z34.91 Encounter for supervision of normal pregnancy, unspecified, first trimester (principal); O20.9 Hemorrhage in early pregnancy, unspecified; Z3A.11 11 weeks gestation of pregnancy; Z12.4 Encounter for screening for malignant neoplasm of cervix
CPT/HCPCS: 76801

== ENCOUNTER 2024-11-02 13:03 | Outpatient (CLI) | payer BC, SELFPAY ==
[2024-11-02 18:47] LABS: Chlamydia DNA Amplified* NOT DETECTED (No Detected); GC DNA Amplified* NOT DETECTED (No Detected)
[2024-11-05 15:52] LABS: HPV Source Cervix
[2024-11-07 10:47] LABS: Pap Test Digital Imaging Done
== END 2024-11-02 13:04 | disposition home or self-care (01) ==
PROVIDERS: PCP Family Medicine; Visit Provider Registered Nurse
DX: Z34.91 Encounter for supervision of normal pregnancy, unspecified, first trimester (principal); Z3A.10 10 weeks gestation of pregnancy
CPT/HCPCS: 80306; 82565; 82570; 83020; 83021; 84156; 84450; 84460; 84520; 85660; 86592; 86703; 86704; 86706; 86762; 86787; 86803; 86850; 86900; 86901; 87086; 87340; 87491; 87591; 87624; 87625; 88141; 88142; 88175

== ENCOUNTER 2024-12-28 12:15 | Outpatient (CLI) | payer BC, SELFPAY ==
--- NOTE | 2024-12-28 12:15 | CRLHL7_ITS ---
For Patients: As a result of the Century Cures Act, medical imaging exams and procedure reports are released immediately into your electronic medical record. You may view this report before your referring provider. If you have questions, please contact your health care provider. OB ULTRASOUND GREATER THAN 14 WEEKS CLINICAL HISTORY: scan. TECHNIQUE: Real time [place] scale imaging of the fetus was performed. Transabdominal imaging performed. COMPARISON: 11/02/2024. FINDINGS: LMP: 08/19/2024. KANG by LMP: 05/26/2025. GA: 18 weeks 5 days. Position: Breech. Cervix: Visualized. Technique: TA. Length of closed cervix: 4.5 cm. Placenta/Cord Placenta Position: Anterior. Placenta tip to internal OS: 6.5 cm. Umbilical Cord: 3 vessel cord. Placental Insertion: Central. Amniotic Fluid: 5.0 cm SDP. Observed Structures Calvarium/Spine: Cerebellum: 1.9 cm, 19 weeks 6 days Cisterna Magna: 5.9 mm Nuchal Fold: 4.9 mm Lateral Ventricle: 6.6 mm CSP Choroid Plexus Midline Falx Spine Abdomen: Stomach Abd Cord Insert Urinary Bladder Kidneys Diaphragm Face: Nose/Lips Orbital view Limbs: Upper Extremities Lower Extremities Hands Feet BIOMETRY BPD: 4.5 cm, 19 weeks 4 days. 85% HC: 16.7 cm, 19 weeks 3 days. 75% AC: 13.6 cm, 19 weeks 0 days. 57% FL: 2.9 cm, 19 weeks 0 days. 54% FL/AC: 21.53% HC/AC Ratio: 1.23. Heart Rate: 150 bpm. Age by this US: 19 weeks 3 days. KANG by this US: 05/21/2025. EFW: 271 grams, 0 lbs 10 oz. Percentile by KANG: 67% IMPRESSION: 1. Incomplete visualization of the profile, four chamber heart, LVOT and RVOT. Remainder of the anatomic survey is normal. Short-term follow-up recommended. 2. Concordance of clinical and sonographic dating. Johnie Ludwig M.D. Diagnostic Radiologist [facility] [employer]. [email or web address] Transcribed: 11:48 am DW/Dictated by: Johnie Ludwig MD @ 12/31/2024 11:20:00 AM (Electronically Signed)
== END 2024-12-28 12:16 | disposition home or self-care (01) ==
LOC: US 12:16
PROVIDERS: PCP Family Medicine; Visit Provider Obstetrics & Gynecology
DX: O99.342 Other mental disorders complicating pregnancy, second trimester (principal); F19.91 Other psychoactive substance use, unspecified, in remission; F60.3 Borderline personality disorder; Z3A.18 18 weeks gestation of pregnancy
CPT/HCPCS: 76805; 80306

== ENCOUNTER 2024-12-28 13:05 | Outpatient (CLI) | payer BC, SELFPAY | END 2024-12-28 13:06 | disposition home or self-care (01) | LOC: NFLDREF 12-29 18:09 | PROVIDERS: PCP Family Medicine; Referring Provider Family Medicine; Visit Provider Obstetrics & Gynecology | DX: N89.8 Other specified noninflammatory disorders of vagina (principal) | CPT/HCPCS: 80306; 80349 ==

== ENCOUNTER 2025-01-24 10:29 | Outpatient (CLI) | payer BC, SELFPAY ==
--- NOTE | 2025-01-24 10:45 | CRLHL7_ITS ---
For Patients: As a result of the Century Cures Act, medical imaging exams and procedure reports are released immediately into your electronic medical record. You may view this report before your referring provider. If you have questions, please contact your health care provider. OB ULTRASOUND LMP: 08/19/2024. KANG by LMP: 05/26/2025. GA: 22 w, 4 d. Single. Comparison: 12/28/2024, 11/02/2024. INDICATION: Follow-up anatomy (heart and profile). TECHNIQUE: Real time grayscale imaging of the fetus was performed. Transabdominal and transvaginal. Transvaginal imaging used to further evaluate the lower uterine segment. CERVIX: Visualized. TA measurement: 3.7 cm. POSITIONING: Breech. AMNIOTIC FLUID: 4.5 cm. SDP (N: greater than 2 x 1 cm) PLACENTA: Technique: Transabdominal. PLACENTA POSITION: Anterior. DOPPLER: heart rate: 147 bpm. BIOMETRY: BPD: 6.0 cm. 24 w, 2 d, 94.4%. HC: 21.8 cm. 23 w, 6 d, 82.8%. AC: 17.5 cm. 22 w, 3 d, 36.7%. FL: 4.0 cm. 22 w, 6 d, 47.9%. FL/AC ratio: 22.7%. HC/AC ratio: 1.2. EFW: 534.6g. Weight: 1 lbs., 3 oz. age by this US: 23 w, 3 d. KANG by this US: 05/20/2025. Percentile by KANG: 54.2%. IMPRESSION: 1. Normal profile. 2. heart views remain difficult to completely evaluate, in particular the RVOT was not visualized. 3. Thinning of the lower uterine segment measuring 1.9 mm, confirmed with transvaginal imaging. MFM consult recommended. Johnie Ludwig M.D. Diagnostic Radiologist [email or web address] hahn/[email or web address] by: Johnie Ludwig MD @ 01/24/2025 12:06:00 PM (Electronically Signed)
== END 2025-01-24 10:30 | disposition home or self-care (01) ==
LOC: US 10:30
PROVIDERS: PCP Family Medicine; Visit Provider Obstetrics & Gynecology
DX: O35.BXX0 Maternal care for other (suspected) fetal abnormality and damage, fetal cardiac anomalies, not applicable or unspecified (principal); Z3A.22 22 weeks gestation of pregnancy
CPT/HCPCS: 76816; 76817

== ENCOUNTER 2025-02-13 10:42 | Outpatient (CLI) | payer BC, SELFPAY | END 2025-02-13 10:43 | disposition home or self-care (01) | LOC: US 10:42 | PROVIDERS: PCP Family Medicine; Visit Provider Obstetrics & Gynecology | DX: O26.892 Other specified pregnancy related conditions, second trimester (principal); R93.89 Abnormal findings on diagnostic imaging of other specified body structures; Z87.59 Personal history of other complications of pregnancy, childbirth and the puerperium; Z3A.25 25 weeks gestation of pregnancy | CPT/HCPCS: 76811; 76817 ==

== ENCOUNTER 2025-03-06 10:53 | Outpatient (CLI) | payer BC, SELFPAY | END 2025-03-06 10:54 | disposition home or self-care (01) | LOC: NFLDREF 03-11 08:44 | PROVIDERS: PCP Family Medicine; Referring Provider Family Medicine; Visit Provider Obstetrics & Gynecology | DX: Z34.83 Encounter for supervision of other normal pregnancy, third trimester (principal); F19.91 Other psychoactive substance use, unspecified, in remission | CPT/HCPCS: 80306; 86780 ==